=== PATIENT | female | born 1970 | race Caucasian/White ===

== ENCOUNTER 2016-04-30 22:57 | Emergency (ER) | payer OTHER ==
[2016-04-30 23:13] VITALS: BP 143/103; PULSE 78; TEMP 97.9; BMI 30.5
--- NOTE | 2016-05-01 01:24 | PDOC ---
History of Present Illness - General Chief Complaint: Shortness of Breath Stated Complaint: SOB Time Seen by Provider: 05/01/16 00:33 - History of Present Illness Initial Comments: 05/01/16 01:18 CHIEF COMPLAINT: sob HISTORY OF PRESENT ILLNESS: 45-year-old female with history of scoliosis, anxiety, and hypertension, presents to ED with shortness of breath or couple years. Patient states that over the last couple years she has been having attacks of shortness of breath "when singing "after which she will relax and let out of the couch. Patient states that when she does so and get some ventilation shortness of breath goes away. She thinks that this is secondary to her weight gain and possibly her cigarette smoking. She has a [id number] history of smoking. She has gained 50 pounds in the last few years. She denies any chest pain, palpitations, sweating, headache, nausea, vomiting, diarrhea, fever, chills. Patient states that she has an appointment with her primary care doctor on May 03. No recent travel or sick contacts. PAST MEDICAL HISTORY: as per HPI FAMILY HISTORY: Grandfather - passed from [place] 1996 SOCIAL HISTORY: 30 pack year smoking history. Denies alcohol, illicit drug use. SURGICAL HISTORY: Denies ALLERGIES: No known drug allergies REVIEW OF SYSTEMS General/Constitutional: Denies fever or chills. Denies weakness, weight change. HEENT: Denies change in vision. Denies ear pain or discharge. Denies sore throat. Cardiovascular: Denies chest pain or shortness of breath. Respiratory: Intermittent shortness of breath x "a couple years." Denies cough, wheezing, or hemoptysis. Gastrointestinal: Denies nausea, vomiting, diarrhea or constipation. Denies rectal bleeding. Genitourinary: Denies dysuria, frequency, or change in urination. Musculoskeletal: Denies joint or muscle swelling or pain. Denies neck or back pain. Skin and breasts: Denies rash or easy bruising. Neurologic: Denies headache, vertigo, loss of consciousness, or loss of sensation. PHYSICAL EXAM General Appearance: Well-appearing, appropriately dressed. No apparent distress , no intoxication. HEENT: EOMI, PERRLA, normal ENT inspection, normal voice, TMs normal, pharynx normal. No conjunctival pallor. No photophobia, scleral icterus. Neck: Supple. Trachea midline. No tenderness, rigidity, carotid bruit, stridor , lymphadenopathy, or thyromegaly. Respiratory/Chest: Patient is speaking in complete sentences without any respiratory distress. Lungs CTAB. No shortness of breath, chest tenderness, respiratory distress, accessory muscle use. No crackles, rales, rhonchi, stridor , wheezing, dullness Cardiovascular: RRR. S1, S2. No JVD, murmur, bradycardia, tachycardia. Vascular Pulses: Dorsalis-Pedis (R): 2+, Dorsalis-Pedis (L): 2+ Gastrointestinal/Abdominal: Normal bowel sounds. Abdomen soft, non-distended. No tenderness or rebound tenderness. No organomegaly, pulsatile mass, guarding , hernia, hepatomegaly, splenomegaly. Lymphatic: No adenopathy, tenderness. Musculoskeletal/Extremities: Normal inspection. FROM of all extremities, normal capillary refill. Pelvis Stable. No CVA tenderness. No tenderness to extremities, pedal edema, swelling, erythema or deformity. Integumentary: Appropriate color, dry, warm. No cyanosis, erythema, jaundice or rash Neurologic: bi tester II-XII intact. Fully oriented, alert. Appropriate mood/affect. Motor strength 5/5. No appreciable EOM palsy, facial droop or sensory deficit. 05/01/16 01:20 Past History - Past Medical History Allergies/Adverse Reactions: Allergies Allergy/AdvReac Type Severity Reaction Status Date / Time No Known Allergies Allergy Verified 04/30/16 23:09 Home Medications: Ambulatory Orders Lisinopril/Hydrochlorothiazide [Lisinopril-Hctz 10-12.5 mg Tab] 0 each PO DAILY 04/30/16 Paroxetine HCl [Paxil] 20 mg PO DAILY 04/30/16 HTN: Yes Psychiatric Problems: Yes (ptsd, anxiety) Other medical history: scoliosis - Psycho/Social/Smoking Cessation Hx Suicidal Ideation: No Smoking History: Current every day smoker Have you smoked in the past 12 months: Yes Information on smoking cessation initiated: Yes 'Breaking Loose' booklet given: 04/30/16 Hx Alcohol Use: No Drug/Substance Use Hx: No *Physical Exam - Vital Signs Last Vital Signs Temp Pulse Resp BP Pulse Ox 97.9 F 78 18 143/103 98 04/30/16 23:10 04/30/16 23:10 04/30/16 23:10 04/30/16 23:10 04/30/16 23:10 Medical Decision Making - Medical Decision Making 05/01/16 01:23 45 yo F with hx of HTN, anxiety, scoliosis presents to ED with shortness of breath x 2 years. -Duoneb -CXR Advised patient to keep appointment with PCP in two days for further evaluation of SOB. Advised patient to quit smoking to improve her symptoms. Advised patient of signs and symptoms for return to ED; patient verbalized understanding and agrees to plan. *DC/Admit/Observation/Transfer Diagnosis at time of Disposition: Shortness of breath - Discharge Dispostion Disposition: HOME Condition at time of disposition: Stable Admit: No - Patient Instructions Printed Discharge Instructions: DI for Shortness of Breath, All Forms of Smoking Are Bad for You, How to Quit Smoking, Tips to Help You Stop Smoking Additional Instructions: As discussed, please discontinue smoking to help improve your symptoms. Please keep your appointment with Dr. Ro on the for further evaluation of the cause of your shortness of breath. If you experience chest pain, palpitations, dizziness, respiratory distress, fever, chills, or any new or worsening symptoms, please return to the ED.
[2016-05-01] MEDS ORDERED: ALBUTEROL SO4 2.5/IPRATROPIUM 0.5 INH SOL 3 ML VIAL.NEB. NEB ONE ×2 (01:42→02:26)
== END 2016-05-01 03:00 | disposition home or self-care (01) ==
LOC: JER 22:57
PROC: 3E0F7GC Introduction of Other Therapeutic Substance into Respiratory Tract, Via Natural or Artificial Opening (ICD-10-PCS; principal; 2016-04-30)
DX: R06.02 Shortness of breath (principal); I10 Essential (primary) hypertension; F43.10 Post-traumatic stress disorder, unspecified; F41.9 Anxiety disorder, unspecified
CPT/HCPCS: 71020-TC; 94640; 99282-25

== ENCOUNTER 2016-08-15 23:01 | Emergency (ER) | payer OTHER ==
[2016-08-15 23:13] VITALS: BP 156/87; PULSE 72; TEMP 97.4; BMI 28.3
--- NOTE | 2016-08-15 23:41 | PDOC ---
History of Present Illness - General Chief Complaint: Pain Stated Complaint: NAUSEA Time Seen by Provider: 08/15/16 23:25 History Source: Patient Exam Limitations: No Limitations - History of Present Illness Initial Comments: 08/16/16 00:17 45-year-old female presents with complaint of nausea for weeks. patient states she had blood work done. patient states both her primary care and [facility] did blood work which showed everything was negative including a negative HIV test. patient's continues stating that she has been nauseous, but has not followed with anyone for further evaluation. patient states she has history of high blood pressure, but refuses to take any medication. Patient states she occasionally smokes cigarettes. Patient denies any chest pain, headache or shortness Past History - Past Medical History Allergies/Adverse Reactions: Allergies Allergy/AdvReac Type Severity Reaction Status Date / Time No Known Allergies Allergy Verified 08/15/16 23:08 Home Medications: Ambulatory Orders Lisinopril/Hydrochlorothiazide [Lisinopril-Hctz 10-12.5 mg Tab] 0 each PO DAILY 04/30/16 Paroxetine HCl [Paxil] 20 mg PO DAILY 04/30/16 Ondansetron [Zofran *Odt*] 4 mg SL TID #30 od.tablet 08/16/16 HTN: Yes Psychiatric Problems: Yes (ptsd, anxiety) - Psycho/Social/Smoking Cessation Hx Suicidal Ideation: No Smoking History: Never smoked Have you smoked in the past 12 months: No Information on smoking cessation initiated: No 'Breaking Loose' booklet given: 04/30/16 Hx Alcohol Use: No Drug/Substance Use Hx: No Review of Systems - Review of Systems Able to Perform ROS?: Yes Is the patient limited Serbian proficient: No Constitutional: Yes: Symptoms Reported, See HPI. No: Chills, Diaphoresis, Fever , Loss of Appetite, Weight Stable HEENTM: Yes: Symptoms Reported, See HPI. No: Eye Pain, Blurred Vision, Tearing , Recent change in vision, Double Vision, Cataracts, Ear Pain, Ocular Prothesis , Ear Discharge, Nose Pain, Nose Congestion, Tinnitus, Nose Bleeding, Other Respiratory: Yes: Symptoms reported, See HPI. No: Cough, Orthopnea, Productive cough Cardiac (ROS): Yes: Symptoms Reported, See HPI. No: Chest Pain, Edema, Lightheadedness, Palpitations, Syncope, Chest Tightness ABD/GI: Yes: Symptoms Reported, See HPI, Nausea. No: Abdominal Distended, Abd. Pain w/ defecation, Blood Streaked Bowels, Constipated, Diarrhea, Poor Fluid Intake, Rectal Bleeding, Vomiting, Abdominal cramping : Yes: Symptoms Reported, See HPI. No: Burning, Dysuria, Discharge, Frequency , Flank Pain, Urgency, Testicular Pain, Other Musculoskeletal: Yes: Symptoms Reported, See HPI. No: Back Pain, Gout, Joint Pain, Joint Swelling, Muscle Pain, Neck Pain Integumentary: Yes: Symptoms Reported, See HPI. No: Bruising, Change in Color, Change in Hair/Nails, Flushing, Lesions Neurological: Yes: Symptoms reported, See HPI. No: Headache, Numbness, Paresthesia, Pre-Existing Deficit, Seizure, Weakness Psychiatric: No: Anxiety, Depression, Frequent Crying, Stressors, Sleep Pattern Change, Other Endocrine: Yes: Symptoms Reported, See HPI. No: Excessive Sweating, Flushing, Intolerance to Cold, Intolerance to Heat, Increased Hunger Hematologic/Lymphatic: Yes: Symptoms Reported, See HPI. No: Anemia, Blood Clots , Easy Bleeding, Easy Bruising, Bleeding Diathesis, Lymph Node Abnormalities *Physical Exam - Vital Signs Last Vital Signs Temp Pulse Resp BP Pulse Ox 97.4 F L 72 20 156/87 98 08/15/16 23:09 08/15/16 23:09 08/15/16 23:09 08/15/16 23:09 08/15/16 23:09 - Physical Exam Comments: 08/16/16 00:16 *Physical Exam General Appearance: Yes: Appropriately Dressed. No: Apparent Distress, Intoxicated HEENT: positive: EOMI, SETH, Normal ENT Inspection, Normal Voice, TMs Normal, Pharynx Normal. negative: Pale Conjunctivae, Photophobia, Scleral Icterus (R), Scleral Icterus (L) Neck: positive: Trachea midline, Normal Thyroid, Supple. negative: Tender, Rigid, Carotid bruit, Stridor, Lymphadenopathy (R), Lymphadenopathy (L), Thyromegaly Respiratory/Chest: positive: Lungs Clear, Normal Breath Sounds. negative: Chest Tender, Respiratory Distress, Accessory Muscle Use, Labored Respiration, RES, Crackles, Rales, Rhonchi, Stridor, Wheezing, Dullness Cardiovascular: positive: Regular Rhythm, Regular Rate, S1, S2. negative: Edema , JVD, Murmur, Bradycardia, Tachycardia Vascular Pulses: Dorsalis-Pedis (R): 2+, Doralis-Pedis (L): 2+ Gastrointestinal/Abdominal: positive: Normal Bowel Sounds, Flat, Soft. negative : Tender, Organomegaly, Pulsatile Mass, Increased Bowel Sounds, Decreased BS, Distended, Guarding, Rebound, Hernia, Hepatomegaly, Spleenomegaly Lymphatic: negative: Adenopathy, Tenderness Musculoskeletal: positive: Normal Inspection. negative: CVA Tenderness, Decreased Range of Motion Extremity: positive: Normal Capillary Refill, Normal Inspection, Normal Range of Motion, Pelvis Stable. negative: Tender, Pedal Edema, Swelling, Erythema Integumentary: positive: Normal Color, Dry, Warm. negative: Cyanotic, Erythema , Jaundice, Rash Neurologic: positive: bdr II-XII NML intact, Fully Oriented, Alert, Normal Mood/ Affect, Motor Strength 5/5. negative: EOM Palsy, Facial Droop, Sensory Deficit Medical Decision Making - Medical Decision Making 08/16/16 00:12 Dr. Matos: The scribe's documentation has been prepared under my direction and personally reviewed by me in its entirery. I confirm that the note above accurately reflects all work, treatment, procedures, and medical decision making performed by me. Patient now no longer wants blood work done stating that was drawn a few days ago with her primary care doctor. Patient will be discharged. patient given prescription for Zofran. Px handed to pt by nurse 08/16/16 00:15 Pt refused Zofran ODt here in ED. *DC/Admit/Observation/Transfer Diagnosis at time of Disposition: Nausea - Discharge Dispostion Disposition: HOME Condition at time of disposition: Stable Admit: No - Prescriptions Prescriptions: Ondansetron [Zofran *Odt*] 4 mg SL TID #30 od.tablet - Referrals Referrals: STAFF,NOT ON [Primary Care Provider] - Deandra Solomon MD [Staff Physician] - - Patient Instructions Printed Discharge Instructions: DI for Nausea -- Adult
[2016-08-15] MEDS ORDERED: ONDANSETRON *ODT* 4 MG TABLET SL ONE (23:42)
[2016-08-15] MEDS ORDERED: ONDANSETRON *ODT* 4 MG TABLET ONE (23:53)
== END 2016-08-16 00:25 | disposition home or self-care (01) ==
LOC: JER 23:01
DX: R11.0 Nausea (principal); I10 Essential (primary) hypertension; F43.10 Post-traumatic stress disorder, unspecified; F42.9 Obsessive-compulsive disorder, unspecified; Z21 Asymptomatic human immunodeficiency virus [HIV] infection status; F17.210 Nicotine dependence, cigarettes, uncomplicated
CPT/HCPCS: 99281-25

== ENCOUNTER 2017-01-19 20:33 | Emergency (ER) | payer OTHER ==
[2017-01-19 20:56] VITALS: BP 139/103; PULSE 63; TEMP 98.4; BMI 29.7
--- NOTE | 2017-01-19 21:14 | PDOC ---
History of Present Illness - General Chief Complaint: Chest Pain Stated Complaint: CHEST PAIN/S.O.B Time Seen by Provider: 01/19/17 21:14 - History of Present Illness Initial Comments: 01/19/17 21:16 Ms. Caldwell is a 46 yo female with a PMH of scoliosis, anxiety, and hypertension who presents to the emergency department with a 3 week history of cough she believes is related to her smoking. She presents for evaluation after she experienced some chest tightness today as well. She also reports that she has not had a bowel movement in 2 weeks. The patient denies shortness of breath, headache and dizziness. Denies fever, chills, nausea, vomit, and diarrhea. Denies dysuria, frequency, urgency and hematuria. Allergies: NKDA Social history: 1 pack per month Past History - Past Medical History Allergies/Adverse Reactions: Allergies Allergy/AdvReac Type Severity Reaction Status Date / Time No Known Allergies Allergy Verified 01/19/17 20:48 Home Medications: Ambulatory Orders Lisinopril/Hydrochlorothiazide [Lisinopril-Hctz 10-12.5 mg Tab] 0 each PO DAILY 04/30/16 Paroxetine HCl [Paxil] 20 mg PO DAILY 04/30/16 Ondansetron [Zofran *Odt*] 4 mg SL TID #30 od.tablet 08/16/16 Docusate Sodium [Colace -] 100 mg PO DAILY #30 capsule 01/19/17 HTN: Yes Psychiatric Problems: Yes (ptsd, anxiety) - Suicide/Smoking/Psychosocial Hx Smoking History: Current every day smoker Have you smoked in the past 12 months: Yes Number of Cigarettes Smoked Daily: 5 Information on smoking cessation initiated: No 'Breaking Loose' booklet given: 04/30/16 Hx Alcohol Use: No Drug/Substance Use Hx: No Substance Use Type: None Review of Systems - Review of Systems Comments:: 01/19/17 21:16 GENERAL/CONSTITUTIONAL: No fever or chills. No weakness. HEAD, EYES, EARS, NOSE AND THROAT: No change in vision. No ear pain or discharge. No sore throat. CARDIOVASCULAR: +Chest tightness since 7pm. RESPIRATORY: +3 weeks of cough. No wheezing, or hemoptysis. GASTROINTESTINAL: +2 weeks of constipation. No nausea, vomiting, or diarrhea. GENITOURINARY: No dysuria, frequency, or change in urination. MUSCULOSKELETAL: No joint or muscle swelling or pain. No neck or back pain. SKIN: No rash NEUROLOGIC: No headache, vertigo, loss of consciousness, or change in strength/ sensation. ENDOCRINE: No increased thirst. No abnormal weight change HEMATOLOGIC/LYMPHATIC: No anemia, easy bleeding, or history of blood clots. ALLERGIC/IMMUNOLOGIC: No hives or skin allergy. *Physical Exam - Vital Signs Last Vital Signs Temp Pulse Resp BP Pulse Ox 98.4 F 63 20 139/103 100 01/19/17 20:48 01/19/17 20:48 01/19/17 20:48 01/19/17 20:48 01/19/17 20:48 - Physical Exam Comments: 01/19/17 21:16 GENERAL: Awake, alert, and fully oriented, in no acute distress HEAD: No signs of trauma, normocephalic, atraumatic EYES: PERRLA, EOMI, sclera anicteric, conjunctiva clear ENT: Auricles normal inspection, hearing grossly normal, nares patent, oropharynx clear without exudates. Moist mucosa NECK: Normal ROM, supple, no lymphadenopathy, JVD, or masses LUNGS: No distress, speaks full sentences, clear to auscultation bilaterally HEART: Regular rate and rhythm, normal S1 and S2, no murmurs, rubs or gallops, peripheral pulses normal and equal bilaterally. ABDOMEN: Soft, nontender, normoactive bowel sounds. No guarding, no rebound. No masses EXTREMITIES: Normal inspection, Normal range of motion, no edema. No clubbing or cyanosis. NEUROLOGICAL: Cranial nerves II through XII grossly intact. Normal speech, normal gait, no focal sensorimotor deficits SKIN: Warm, Dry, normal turgor, no rashes or lesions noted. ED Treatment Course - LABORATORY CBC & Chemistry Diagram: 01/19/17 22:03 01/19/17 21:55 Medical Decision Making - Medical Decision Making 01/19/17 22:50 Ms. Caldwell is resting comfortably with complaints of several weeks of cough with sputum production (unsure of color as has always swallowed it). Chest XR clear for acute pathology - no change from previous CXR. Troponin negative, labs unconcerning as below. Patient thinks cough is due to smoking cigarettes - advised to stop. EKG Normal rate, normal rhythm, normal access, normal interval, no obvious ST elevation or depression. Constipation with atypical chest pain and cough. Rx for colace for constipation given with instructions to follow up with PCP. Patient verbalized understanding. Laboratory Results - last 24 hr 01/19/17 01/19/17 01/19/17 21:55 22:03 22:03 WBC 6.9 RBC 4.12 Hgb 12.4 Hct 37.0 MCV 89.8 MCH 30.1 MCHC 33.5 RDW 14.1 Plt Count 320 MPV 8.0 Neutrophils % 48.0 Lymphocytes % 36.2 Monocytes % 11.8 H Eosinophils % 3.2 Basophils % 0.8 Sodium 139 Potassium 3.8 Chloride 104 Carbon Dioxide 25 Anion Gap 10 BUN 11 Creatinine 0.8 Creat Clearance w eGFR > 60 Random Glucose 98 Calcium 9.1 Total Bilirubin 0.3 AST 11 L ALT 19 Alkaline Phosphatase 71 Creatine Kinase 85 Troponin I < 0.02 Total Protein 7.8 Albumin 3.4 Serum , Qual Negative 01/19/17 23:05 01/19/17 23:07 *DC/Admit/Observation/Transfer Diagnosis at time of Disposition: Atypical chest pain, Cough Constipation Qualifiers: Constipation type: unspecified constipation type Qualified Code(s): K59.00 - Constipation, unspecified - Discharge Dispostion Disposition: HOME - Prescriptions Prescriptions: Docusate Sodium [Colace -] 100 mg PO DAILY #30 capsule - Referrals Referrals: STAFF,NOT ON [Primary Care Provider] - - Patient Instructions Printed Discharge Instructions: DI for Atypical Chest Pain, DI for Constipation Additional Instructions: Please follow-up with your Primary Care Provider regarding your recurrent cough.
--- NOTE | 2017-01-19 21:20 | PDOC ---
Attending Attestation - Resident Resident Name: Júnior Hernández - ED Attending Attestation I have performed the following: I have examined & evaluated the patient, The case was reviewed & discussed with the resident, I agree w/resident's findings & plan, Exceptions are as noted - HPI HPI: 01/19/17 21:15 Chest Pain - Physicial Exam PE: 01/19/17 21:17 VSS NAD - Medical Decision Making 01/19/17 21:[address] Hernández's Assessment and Plan
[2017-01-19 22:11] LABS: BASOPHIL 0.8 % (0-2.0); EOSINOPHIL 3.2 % (0-4.5); MCH 30.1 pg (25.7-33.7); MCHC 33.5 g/dl (32.0-36.0); MEAN CELL VOLUME 89.8 fl (80-96); PLATELET COUNT 320 K/MM3 (134-434); RDW 14.1 % (11.6-15.6); WHITE BLOOD COUNT 6.9 K/mm3 (4.0-10.0)
[2017-01-19 22:38] LABS: ALBUMIN 3.4 g/dl (3.4-5.0); ANION GAP 10 (8-16); BILIRUBIN,TOTAL 0.3 mg/dL (0.2-1.0); CALCIUM 9.1 mg/dL (8.5-10.1); CO2 25 mmol/L (21-32); CREATININE 0.8 mg/dL (0.55-1.02); GLUCOSE,RANDOM 98 mg/dL (74-106); SGOT/AST 11 U/L (15-37); SGPT/ALT 19 U/L (12-78); TOT PROT 7.8 g/dl (6.4-8.2)
[2017-01-19 22:40] LABS: ALK PHOS 71 U/L (45-117); CPK 85 IU/L (26-192); TROPONIN I < 0.02 ng/ml (0.00-0.05)
--- NOTE | 2017-01-20 12:46 | EKG ---
Test Reason : Blood Pressure : / mmHG Vent. Rate : 061 BPM Atrial Rate : 061 BPM P-R Int : 150 ms QRS Dur : 092 ms QT Int : 394 ms P-R-T Axes : 038 002 056 degrees QTc Int : 396 ms NORMAL SINUS RHYTHM NONSPECIFIC T WAVE ABNORMALITY ABNORMAL ECG WHEN COMPARED WITH ECG OF 05-JUN-2008 21:41, NO SIGNIFICANT CHANGE WAS FOUND Confirmed by LUZ HAY MD ([id number]) on 01/20/2017 12:45:33 PM Referred By: Confirmed By:LUZ HAY MD
== END 2017-01-19 23:14 | disposition home or self-care (01) ==
LOC: JER 20:33
DX: R07.89 Other chest pain (principal); K59.00 Constipation, unspecified; I10 Essential (primary) hypertension; F41.9 Anxiety disorder, unspecified; M41.9 Scoliosis, unspecified
CPT/HCPCS: 36415; 71020-TC; 80053; 82550; 84484; 84703; 85025; 93005; 93010; 99283-25

== ENCOUNTER 2017-01-20 09:58 | Emergency (ER) | payer OTHER ==
[2017-01-20 10:05] VITALS: BP 147/99; PULSE 73; TEMP 98.6; BMI 30.5
--- NOTE | 2017-01-20 12:37 | PDOC ---
History of Present Illness - General Chief Complaint: Cold Symptoms Stated Complaint: SOB Time Seen by Provider: 01/20/17 10:46 History Source: Patient Exam Limitations: No Limitations - History of Present Illness Initial Comments: 01/20/17 11:37 46-year-old female presents the ED with complaints of intermittent shortness of breath worsened with deep breathing for the past few days which she states has had previously over the last 2 years. Patient states feels anxious and denies cough, wheezing, fever, chills, chest pain, palpitations, lower extremity edema , or weakness. Patient states has psychiatric history without recent change in medications. Patient also states does not smoke. Patient was seen here yesterday with a negative chest x-ray Timing/Duration: reports: intermittent Severity: reports: moderate Possible Cause: Yes: occasional episodes Modifying Factors: improves with: other Associated Symptoms: reports: shortness of breath Past History - Past Medical History Allergies/Adverse Reactions: Allergies Allergy/AdvReac Type Severity Reaction Status Date / Time No Known Allergies Allergy Verified 01/20/17 10:05 Home Medications: Ambulatory Orders Haloperidol Decanoate [Haldol Decanoate 100] 0 mg IM ASDIR 01/20/17 HTN: Yes Psychiatric Problems: Yes (ptsd, anxiety) - Reproductive History LMP Normal: Yes Is Patient Now?: No - Suicide/Smoking/Psychosocial Hx Smoking History: Current every day smoker Have you smoked in the past 12 months: Yes Number of Cigarettes Smoked Daily: 3 Information on smoking cessation initiated: No 'Breaking Loose' booklet given: 04/30/16 Hx Alcohol Use: No Drug/Substance Use Hx: No Substance Use Type: None Patient Lives Alone: No Lives with/in: daughter Review of Systems - Review of Systems Able to Perform ROS?: Yes Constitutional: No: Symptoms Reported HEENTM: No: Symptoms Reported Respiratory: Yes: Shortness of Breath (with deep breathing) Cardiac (ROS): No: Symptoms Reported ABD/GI: No: Symptoms Reported : No: Symptoms Reported Musculoskeletal: No: Symptoms Reported Integumentary: No: Symptoms Reported Neurological: No: Symptoms reported Psychiatric: Yes: Anxiety. No: Stressors Endocrine: No: Symptoms Reported Hematologic/Lymphatic: No: Symptoms Reported *Physical Exam - Vital Signs Last Vital Signs Temp Pulse Resp BP Pulse Ox 98.6 F 73 18 147/99 100 01/20/17 10:02 01/20/17 10:02 01/20/17 10:02 01/20/17 10:02 01/20/17 10:02 - Physical Exam General Appearance: Yes: Nourished, Appropriately Dressed. No: Apparent Distress HEENT: positive: EOMI, SETH, Pharynx Normal. negative: Pale Conjunctivae Neck: positive: Normal Thyroid, Supple Respiratory/Chest: positive: Lungs Clear, Normal Breath Sounds. negative: Chest Tender, Respiratory Distress, Accessory Muscle Use, Rapid RR, Wheezing Cardiovascular: positive: Regular Rhythm, Regular Rate. negative: Murmur Gastrointestinal/Abdominal: positive: Soft. negative: Tenderness Extremity: negative: Pedal Edema Integumentary: positive: Normal Color, Warm, Moist Neurologic: positive: Motor Strength 5/5 (ambulatory). negative: Normal Mood/ Affect (flat affect, no eye contact) Medical Decision Making - Medical Decision Making 01/20/17 11:40 Patient here for evaluation of intermittent shortness of breath when taking a deep breath. Patient upon my arrival had normal vital signs with normal clinical exam. Patient states she feels takes a deep breath she can't because of sternal pain coughing or shortness of breath. Patient on exam was witnessed taking a deep breath without difficulty with breath sounds the bases. Patient given saline nebulizer . previous workup yesterday was reviewed with no acute finding.. 01/20/17 11:51 Patient came to the nurse and states she felt claustrophobic with the mask off receiving a saline nebulizer so took it off and states she has to walk around.Patient unable to be located within the ER, waiting area, ER room, or hallways. Patient to be considered an elopement *DC/Admit/Observation/Transfer Diagnosis at time of Disposition: Shortness of breath - Discharge Dispostion Disposition: ELOPED Condition at time of disposition: Unchanged/Unknown - Referrals Referrals: STAFF,NOT ON [Primary Care Provider] -
== END 2017-01-20 12:57 | disposition left against medical advice (07) ==
LOC: JER 09:58
DX: R06.02 Shortness of breath (principal); I10 Essential (primary) hypertension; F41.9 Anxiety disorder, unspecified; F43.10 Post-traumatic stress disorder, unspecified
CPT/HCPCS: 99281-25